=== PATIENT | female | born 1980 | race Caucasian/White ===

== ENCOUNTER 2020-12-31 03:17 | Emergency (ER) | payer OTHER ==
--- NOTE | 2020-12-31 04:00 | NUR ---
CALLED TO TRIAGE NOT IN ROOM
--- NOTE | 2020-12-31 04:18 | NUR ---
CALLED TO TRIAGE ONCE AGAIN , NO ANSWER
--- NOTE | 2020-12-31 04:30 | NUR ---
STILL NOT IN WAITING ROOM WHEN CALLED FOR TRIAGE
== END 2020-12-31 05:07 | disposition left against medical advice (07) ==
LOC: ER 03:17
DX: Z53.21 Procedure and treatment not carried out due to patient leaving prior to being seen by health care provider (principal)